=== PATIENT | male | born 1980 | race Caucasian/White ===

== ENCOUNTER 2022-03-06 23:12 | Emergency (ER) | payer BC ==
[2022-03-06] MEDS ORDERED: Prochlorperazine 10 MG/2 ML SDV IVPUSH ONE (23:19)
[2022-03-06] MEDS ORDERED: Dexamethasone 4 MG/ML SDV IVPUSH ONE (23:19)
[2022-03-06] MEDS ORDERED: diphenhydrAMINE 50 MG/ML SDV IVPUSH ONE (23:19)
[2022-03-06] MEDS ORDERED: Sodium Chloride 0.9% 10 ML Syringe FLUSH PRN (23:19)
[2022-03-06] MEDS ORDERED: Ketorolac 30 MG/ML SDV IVPUSH ONE (23:19)
[2022-03-06] MEDS ORDERED: Sodium Chloride 0.9% 1,000 ML IV SCH (23:30)
[2022-03-06 23:35] LABS: ESTIMATED GFR 78 mL/min (>60)
== END 2022-03-07 01:22 | disposition home or self-care (01) ==
LOC: JP.ED 23:12
DX: G43.909 Migraine, unspecified, not intractable, without status migrainosus (principal); Z20.822 Contact with and (suspected) exposure to COVID-19
CPT/HCPCS: 36415; 80053; 85025; 86140; 87635; 96361; 96374; 96375; 99281; 99284; J0780; J1100; J1200; J1885; J7030; U0002